=== PATIENT | male | born 1990 | race Caucasian/White ===

== ENCOUNTER → 2025-05-06 08:43 | Outpatient (CLI) | payer OTHER, SELFPAY ==
--- NOTE | 2025-05-06 08:51 | DI.RAD.S_ITS ---
PROCEDURE: XR ANKLE LT MIN 3V INDICATIONS: r/o fracture, s/p mechanical trip/fall while trail running TECHNIQUE: 3 views of the ankle were acquired. COMPARISON: None. FINDINGS: Bones: No acute fractures or dislocations. Ankle mortise is normally aligned. No suspicious bony lesions. Soft tissues: Mild soft tissue edema overlying the lateral malleolus. IMPRESSION: No acute osseous abnormality. If there is continued clinical concern or persistent symptoms, repeat radiographs or cross-sectional imaging (e.g. CT, MRI) may be helpful for further evaluation. Approved by: Viraj Lane M.D. on 05/06/2025 at 9:34
== END ==
PROVIDERS: Referring Provider Nurse Practitioner Family; Visit Provider Nurse Practitioner Family
DX: S93.402A Sprain of unspecified ligament of left ankle, initial encounter (principal); W01.0XXA Fall on same level from slipping, tripping and stumbling without subsequent striking against object, initial encounter
CPT/HCPCS: 73610

== ENCOUNTER → 2025-05-10 08:45 | Outpatient (CLI) | payer OTHER, SELFPAY ==
[2025-05-10 09:30] LABS: Hematocrit 42.7 % (41-53); Hemoglobin 14.5 g/dL (13.5-17.5); Mean Corpuscular HGB Conc 33.9 % (30-36); Mean Corpuscular Hemoglobin 30.6 PG (26-34); Mean Corpuscular Volume 90.5 fL (80-100); Platelet Count 299 X10^3/uL (150-400)
[2025-05-10 09:44] LABS: Blood Urea Nitrogen 17 mg/dL (9-20); Calcium 9.9 mg/dL (8.4-10.2); Carbon Dioxide 32 mmol/L (22-32); Chloride 100 mmol/L (98-107); Cholesterol 172 mg/dL (140-199); Estimated Glomerular Filt Rate > 60 mL/min (>60); Glucose 101 mg/dL (70-99); HDL Cholesterol 61 mg/dL (40-60); HEMOLYSIS < 15 (0-50); Potassium 4.7 mmol/L (3.4-5.1); Sodium 137 mmol/L (137-145); Triglycerides 77 mg/dL (35-150)
== END ==
PROVIDERS: Referring Provider Nurse Practitioner Family; Visit Provider Nurse Practitioner Family
DX: E78.5 Hyperlipidemia, unspecified (principal)
CPT/HCPCS: 36415; 80048; 80061; 85027